=== PATIENT | male | born 1950 | race Caucasian/White ===

== ENCOUNTER → 2020-03-28 | Outpatient (CLI) | payer MEDICARE, OTHER ==
--- NOTE | 2020-03-28 09:09 | XR ---
EXAMINATION TYPE: XR chest 2V DATE OF EXAM: 03/28/2020 COMPARISON: NONE HISTORY: Shortness of breath TECHNIQUE: Frontal and lateral views of the chest are obtained. FINDINGS: Scattered senescent parenchymal changes noted. Hyperinflation compatible with COPD. No evidence for infiltrate. No evidence for atelectasis. Heart size is stable. Mediastinal structures are stable and grossly unremarkable. No evidence for hilar prominence. Degenerative changes dorsal spine. IMPRESSION: 1. No evidence for acute pulmonary disease.
== END | disposition home or self-care (01) ==
LOC: RADXRMAIN 08:32
PROVIDERS: ATTEND Family Medicine
DX: R06.00 Dyspnea, unspecified (principal)
CPT/HCPCS: 71046

== ENCOUNTER → 2021-02-08 | Outpatient (CLI) | payer MEDICARE, OTHER ==
--- NOTE | 2021-02-09 07:43 | US ---
EXAMINATION TYPE: US thyroid st tissue head/neck DATE OF EXAM: 02/08/2021 COMPARISON: NONE CLINICAL HISTORY: R13.10 Dysphagia R49.0 Dysphonia. hoarseness, difficulty swallowing GLAND SIZE: Right Lobe: 5.2 x 2.3 x 2.1 cm Overall Parenchyma: homogenous Left Lobe: 4.5 x 2.2 x 1.6 cm Overall Parenchyma: homogeneous Isthmus Thickness: 0.4 cm NODULES RIGHT: # of nodules measured on right: 0 LEFT: # of nodules measured on left: 0 ISTHMUS: # of nodules measured in the isthmus: 0 Bilateral neck scanned, no evidence of lymphadenopathy. IMPRESSION: No distinct abnormality
== END | disposition home or self-care (01) ==
LOC: RADUSWWP 16:34
PROVIDERS: ATTEND Family Medicine
DX: R13.10 Dysphagia, unspecified (principal)
CPT/HCPCS: 76536

== ENCOUNTER → 2021-03-15 | Outpatient (CLI) | payer MEDICARE, OTHER ==
[2021-03-15 19:00] LABS: Anion Gap 10.3 mmol/L (10.00-18.00); BUN/Creat Ratio 15.77 Ratio (12.00-20.00); Blood Urea Nitrogen 19.4 mg/dL (9.0-27.0); Calcium 9.8 mg/dL (8.7-10.3); Carbon Dioxide 26.4 mmol/L (20.0-27.5); Non-African American GFR(CKD) 58.7 (60.0-200.0); Potassium 4.7 mmol/L (3.5-5.5)
[2021-03-15 19:01] LABS: Basophils # (A) 0.03 X 10*3/uL (0.00-0.10); Basophils % (A) 0.4 %; Eosinophils # (A) 0.18 X 10*3/uL (0.04-0.35); Eosinophils % (A) 2.5 %; HCT 39.1 % (39.6-50.0); HGB 12.3 g/dL (13.0-17.0); Lymphocytes # (A) 1.32 X 10*3/uL (0.90-5.00); Lymphocytes % (A) 18.5 %; MCH 28.9 pg (27.0-32.0); MCHC 31.5 g/dL (32.0-37.0); MCV 91.8 fL (80.0-97.0); Mean Platelet Volume 10.1 fL (9.5-12.2); Monocytes # (A) 0.78 X 10*3/uL (0.20-1.00); Neutrophils # (A) 4.78 X 10*3/uL (1.80-7.70); Neutrophils % (A) 67.2 %; Platelet Count 217 X 10*3/uL (140-440); RBC 4.26 X 10*6/uL (4.40-5.60); RDW 13.4 % (11.5-14.5); WBC 7.12 X 10*3/uL (4.50-10.00)
== END | disposition home or self-care (01) ==
LOC: LABWHC1 10:43
PROVIDERS: ATTEND Family Medicine
DX: D64.9 Anemia, unspecified (principal); E87.8 Other disorders of electrolyte and fluid balance, not elsewhere classified
CPT/HCPCS: 36415; 80048; 85025

== ENCOUNTER → 2023-11-01 | Outpatient (CLI) | payer MEDICARE ==
--- NOTE | 2023-11-01 13:35 | US ---
EXAMINATION TYPE: US kidneys/renal and bladder DATE OF EXAM: 11/01/2023 COMPARISON: NONE CLINICAL INDICATION: Male, 73 years old with history of N20.0 Bilateral nephrolithiasis; CKD, history of kidney stones EXAM MEASUREMENTS: Right Kidney: 9.8 x 4.1 x 4.3 cm Left Kidney: 10.2 x 5.0 x 4.0 cm Right Kidney: dense echogenic foci noted, largest, lower pole = 0.4cm Left Kidney: dense echogenic foci noted, largest, lower pole = 0.4cm Bladder: diverticula noted Bilateral Jets seen: no There is no evidence for hydronephrosis at this point in time. No masses are identified. The urinar y bladder is anechoic. Bilateral ureteral jets are seen. IMPRESSION: 1. No evidence for obstructive uropathy. 2. Bilateral nonobstructing calculi.
== END | disposition home or self-care (01) ==
LOC: RADUSWWP 12:14
PROVIDERS: ATTEND Internal Medicine Nephrology
DX: N13.2 Hydronephrosis with renal and ureteral calculous obstruction (principal); N18.9 Chronic kidney disease, unspecified
CPT/HCPCS: 76770

== ENCOUNTER → 2024-06-09 | Outpatient (CLI) | payer MEDICARE ==
--- NOTE | 2024-06-09 15:02 | US ---
EXAMINATION TYPE: US carotid duplex BILAT DATE OF EXAM: 06/09/2024 COMPARISON: NONE CLINICAL INDICATION: Male, 74 years old with history of I25.10 ATHSCL HEART DISEASE; heart disease Additional History: I65.- Occlusion/stenosis of specified precerebral artery, specified laterality TECHNIQUE: Grayscale, color Doppler and spectral Doppler evaluation of the bilateral carotid systems and vertebral arteries. Indirect Doppler criteria was utilized. FINDINGS: EXAM MEASUREMENTS: RIGHT: Peak Systolic Velocity (PSV) cm/sec ----- Right CCA: 73.5 ----- Right ICA: 63.3 ----- Right ECA: 55.9 ICA/CCA ratio: 0.9 RIGHT: End Diastole cm/sec ----- Right CCA: 17.7 ----- Right ICA: 21.5 ----- Right ECA: 9.0 LEFT: Peak Systolic Velocity (PSV) cm/sec ----- Left CCA: 90.8 ----- Left ICA: 82.2 ----- Left ECA: 63.8 ICA/CCA ratio: 0.9 LEFT: End Diastole cm/sec ----- Left CCA: 25.9 ----- Left ICA: 15.3 ----- Left ECA: 11.0 VERTEBRALS (direction of flow): Right Vertebral: Antegrade Left Vertebral: Antegrade Rhythm: Normal [employer]TING [employer]IATE NOTES: no plaque seen. No elevated velocities seen Color Doppler imaging shows patency with blood flow throughout the carotid artery. Spectral waveforms are within normal limits. IMPRESSION: 1. No suspicious flow limiting stenosis based on velocities. Criteria for Assigning % of Stenosis / Diameter reduction (Estimation based on the indirect measurements of the internal carotid artery velocities (ICA PSV). 1. Normal (no stenosis)=ICA PSV < 125 cm/s: ratio < 2.0: ICA EDV<40 cm/s. 2. Less than 50% stenosis=ICA PSV < 125 cm/s: ratio < 2.0: ICA EDV<40 cm/s. 3. 50 to 69% stenosis=ICA PSV of 125 to 230 cm/s: ration 2.0 ? 4.0: ICA EDV 40-100 cm/s. 4. Greater than 70% stenosis to near occlusion= ICA PSV > 230 cm/s: ratio > 4.0: ICA EDV > 100 cm/s. 5. Near occlusion= ICA PSV velocities may be low or undetectable: variable ratio and ICA EDV. 6. Total occlusion=unable to detect flow. [facility], , 06/09/2024 3:00 PM
== END | disposition home or self-care (01) ==
LOC: RADUSWWP 13:25
PROVIDERS: ATTEND Family Medicine
DX: I25.10 Atherosclerotic heart disease of native coronary artery without angina pectoris (principal)
CPT/HCPCS: 93880

== ENCOUNTER → 2024-06-17 | Outpatient (CLI) | payer MEDICARE ==
--- NOTE | 2024-06-17 09:10 | XR ---
EXAMINATION TYPE: XR KUB DATE OF EXAM: 06/17/2024 COMPARISON: Renal ultrasound 11/01/2023 HISTORY: Calculus of kidney TECHNIQUE: Single supine KUB image of the abdomen is obtained FINDINGS: Small bowel demonstrates no evidence for dilatation or air fluid levels. Gas and fecal material is seen in non-distended colon. No convincing evidence for pneumoperitoneum. Left renal 6 mm calculus. No definitive ureteral or right renal calculus however there is a large aminata unt of stool overlying the right renal location. Bilateral pelvic phleboliths. The lung bases are clear. The osseous structures are intact. IMPRESSION: Left renal 6 mm calculus. [facility], , 06/17/2024 9:08 AM
== END | disposition home or self-care (01) ==
LOC: RADXRMAIN 08:40
PROVIDERS: ATTEND Urology
DX: N20.0 Calculus of kidney (principal)
CPT/HCPCS: 74018

== ENCOUNTER → 2024-06-24 | Outpatient (CLI) | payer MEDICARE ==
--- NOTE | 2024-06-24 08:48 | CT ---
EXAMINATION TYPE: CT abdomen pelvis wo con DATE OF EXAM: 06/24/2024 COMPARISON: NONE CLINICAL INDICATION: Male, 74 years old with history of N25 renal colic, RENAL COLIC, TECHNIQUE: CT scan of the abdomen and pelvis is performed without IV contrast Oral contrast used: without Oral Contrast (none if empty) CT DLP: 270 mGycm, Automated exposure control for dose reduction was used. FINDINGS: Within the limitations of noncontrast study, the following observations are made LUNG BASES: No significant abnormality is appreciated. LIVER/GB: Multiple small stones inside gallbladder lumen. No surrounding ill-defined fluid or fat str anding. PANCREAS: No significant abnormality is seen. SPLEEN: No significant abnormality is seen. ADRENALS: No significant abnormality is seen. KIDNEYS: Bilateral small renal calculi are seen. There is a 6 mm calculus noted from reference lower pole left kidney image 52. No hydronephrosis or ureteral calculi seen bilaterally. There is approxima tely 4.0 cm diverticulum along the left posterior aspect of the bladder. BOWEL: There are 2 duodenal diverticula with largest 3.2 cm diverticulum noted along the third portio n of duodenum image 30. No abnormal small or large bowel dilatation. Distal colonic diverticulosis is present. No CT evidence for acute diverticulitis. No abnormal small or large bowel dilatation. PROSTATE/SEMINAL VESICLES: Mildly enlarged prostate consistent with BPH. LYMPH NODES: No greater than 1cm abdominal or pelvic lymph nodes are appreciated. OSSEOUS STRUCTURES: Moderate degenerative narrowing of both hip joints. OTHER: No significant additional abnormality is seen. IMPRESSION: Small nonobstructing bilateral renal calculi. No hydronephrosis or obstructing ureter jonelle culi seen bilaterally. [facility], , 06/24/2024 8:45 AM
== END | disposition home or self-care (01) ==
LOC: RADCTMAIN 08:05
PROVIDERS: ATTEND Urology
DX: N20.0 Calculus of kidney (principal); N40.0 Benign prostatic hyperplasia without lower urinary tract symptoms; K57.30 Diverticulosis of large intestine without perforation or abscess without bleeding
CPT/HCPCS: 74176